=== PATIENT | female | born 1990 | race Caucasian/White ===

== ENCOUNTER 2018-04-19 21:17 | Emergency (ER) | payer OTHER ==
[~2018-04-19] VITALS: Ht 170.2 cm; Wt 104.3 kg
[2018-04-19] MEDS ORDERED: ZANTAC150 MG PO (21:34)
[2018-04-19] MEDS ORDERED: FIASP 100100 UNIT/2 SUB-Q (21:34)
[2018-04-20] MEDS ORDERED: PROTONIX40 MG PO (00:36)
== END 2018-04-20 00:45 | disposition home or self-care (01) ==
LOC: ED 21:17
DX: K30 Functional dyspepsia (principal); E10.9 Type 1 diabetes mellitus without complications; Z79.4 Long term (current) use of insulin; Z79.899 Other long term (current) drug therapy
CPT/HCPCS: 71045; 74177; 76705; 80053; 81001; 83605; 83690; 84703; 85025; 96361; 99284-25; C9113; J2405; J7030; Q9967

== ENCOUNTER 2018-05-16 13:10 | Day surgery (SDC) | payer OTHER ==
[~2018-05-16] VITALS: Ht 170.2 cm; Wt 102.5 kg
--- NOTE | ~2018-05-16 | OR ---
[facility] [address], [place] [address] Draft DATE OF OPERATION: 05/16/2018 SURGEON: Leatha Brown MD PREOPERATIVE DIAGNOSES: 1. Insulin-dependent diabetes mellitus (insulin pump). 2. Clinical concern for reflux; epigastric and right subcostal pain. POSTOPERATIVE DIAGNOSES: 1. Completely normal esophagus. 2. Small hiatal hernia. PROCEDURE: Esophagogastroduodenoscopy with biopsy. ANESTHESIA: Intravenous sedation, fentanyl 100 mcg, Versed 6 mg. INDICATION: This 27-year-old white woman is a patient of WAQAS Terry and sees also Dr. Caal in [place], [place]. She has diabetes mellitus, managed by insulin infusion with an insulin pump. The patient has had complaints of "acid reflux," progressed over the past 3 months. An upper GI was performed at age 10, showing possible hiatal hernia. She was prescribed omeprazole at that time, which helped her symptoms. Three months ago, she was prescribed Prilosec for epigastric pain, which was no benefit. She subsequently changed the Nexium, which did help somewhat for a while Zantac was then added, which was somewhat helpful and a month and half ago she increased her Zantac to twice a day as well as Nexium. Her symptoms are not well controlled now. She did undergo CT scan of the abdomen and pelvis on April 19, 2018, which showed mild thickening of the esophagus, was not specifically suspicious for cancer, only possible esophagitis. Additionally, an ultrasound of the gallbladder and a chest x-ray was performed. They were considered normal. She is admitted at this time to undergo upper endoscopy to better characterize her problem. On strong suspicion, this may represent biliary disease. I have organized for her to have a CCK-HIDA test, which the results shows an ejection fraction of 34% with reproduction of many of her symptoms. The patient understands the risks of upper endoscopy including but not limited to bleeding, infection, and perforation and wished to proceed. PATIENT NAME: SYLVIA GRAVES OPERATIVE REPORT DATE OF : 86 REPORT #: [id number] PHYSICIAN: LEATHA BROWN MD PCP: JEREMIAS MCKEON PAC REPORT IS CONFIDENTIAL AND NOT TO BE RELEASED WITHOUT AUTHORIZATION [facility] [address], [place] [address] Draft FINDINGS: The esophagus was completely normal in every way. The GE junction did show a small hiatal hernia. The stomach was normal and I did not detect gross signs of gastroparesis particularly. The pylorus was normal. There was no sign of peptic disease. The duodenum was normal. The ampulla was visible and normal also. CLOtest biopsies were negative 15 minutes post procedure. The only finding was a small hiatal hernia in retroflexed view. Biopsies were taken throughout to assess for microscopic inflammatory changes not noted endoscopically. DESCRIPTION OF PROCEDURE: The patient was brought to the endoscopy suite and placed in lateral decubitus position after undergoing lidocaine hypopharyngeal anesthesia. A bite block was placed. Intravenous sedation was then admitted to the point of slurred speech and nystagmus with full cardiopulmonary monitoring. A bite block was placed and an Olympus video upper endoscope was passed in the hypopharynx. The vocal cords appeared normal. Scope was advanced to the esophagus. Throughout its length, it was completely normal. There was no Douglas epithelium stricture, neoplasm, or other problem. The scope was advanced to the stomach, which was insufflated with air. Rugal folds appeared normal. Pylorus was normal as no antral or pre-antral inflammation. Passage in the duodenum showed no sign of abnormality. The ampulla of Vater was quite prominent, but not neoplastic in any way. Photographs were taken after duodenal biopsy to assess for celiac disease. The scope was withdrawn and biopsies were then taken of the antrum for both HEATHER and pathologic testing. Retroflexed view was undertaken showing a poor flap valve consistent with small hiatal hernia. Scope was withdrawn and biopsies taken of the normal mucosa of the esophagus and mid esophagus. The scope was carefully withdrawn and no other findings were noted. She was taken to recovery room in good condition. CONCLUDING DIAGNOSIS: Given her most recent CCK-HIDA test with ejection fraction of 34%, and several family members with biliary disease and symptoms completely unresponsive to PPI medication, H2 blockers and buffer agents. It is highly probable her symptoms are actually related to acalculous cholecystitis (biliary dyskinesia). On that basis, consideration should be made for cholecystectomy. We are mindful that her diabetes does put her at increased risk for gastroparesis, but I do not see stigmata of that at this time. PLAN: She will continue her medications for now. We will review pathology reports obtained by biopsy. Strong consideration might be made for cholecystectomy at her convenience. PATIENT NAME: SYLVIA GRAVES OPERATIVE REPORT DATE OF : 86 REPORT #: [id number] PHYSICIAN: LEATHA BROWN MD PCP: JEREMIAS MCKEON PAC REPORT IS CONFIDENTIAL AND NOT TO BE RELEASED WITHOUT AUTHORIZATION [address] [address] Draft MD ISABELLA Bustillos/KENYATTAL /[id number] cc: ROSE Terry MD Copies: JEREMIAS MCKEON JENNIFER C MD ~ PATIENT NAME: STARSYLVIA FIDEL OPERATIVE REPORT DATE OF : 86 REPORT #: [id number] PHYSICIAN: LEATHA BROWN MD PCP: JEREMIAS MCKEON REPORT IS CONFIDENTIAL AND NOT TO BE RELEASED WITHOUT AUTHORIZATION
[~2018-05-16 13:10] MED LIST: FIASP 100100 UNIT/2 SUB-Q; PROTONIX40 MG PO; ZANTAC150 MG PO
--- NOTE | 2018-05-16 17:27 | NUR ---
05/16/18 1727 Fabiola Cotton 1719 PATIENT ARRIVES TO PACU AWAKE. RESP EVEN AND UNLABORED. ROOM AIR SATS 97%. DENIES PAIN OR NAUSEA. 1725 PATIENT SITTING UP IN BED. DENIES PAIN OR NAUSEA.
== END 2018-05-16 17:50 | disposition home or self-care (01) ==
LOC: OPS 13:10 → DS 13:10 → OPS 14:00 → DS 14:00 → OPS 17:50
PROVIDERS: Surgery
PROC: 0DB78ZX Excision of Stomach, Pylorus, Via Natural or Artificial Opening Endoscopic, Diagnostic (ICD-10-PCS; 2018-05-16)
PROC: 0DB28ZX Excision of Middle Esophagus, Via Natural or Artificial Opening Endoscopic, Diagnostic (ICD-10-PCS; 2018-05-16)
PROC: 0DB38ZX Excision of Lower Esophagus, Via Natural or Artificial Opening Endoscopic, Diagnostic (ICD-10-PCS; 2018-05-16)
PROC: 0DB98ZX Excision of Duodenum, Via Natural or Artificial Opening Endoscopic, Diagnostic (ICD-10-PCS; principal; 2018-05-16 14:00)
DX: K21.0 Gastro-esophageal reflux disease with esophagitis (principal); K44.9 Diaphragmatic hernia without obstruction or gangrene; E11.9 Type 2 diabetes mellitus without complications; Z96.41 Presence of insulin pump (external) (internal); Z79.899 Other long term (current) drug therapy
CPT/HCPCS: 99153; G0500; J2250; J3010; J7120